=== PATIENT | female | born 1995 | race Caucasian/White ===

== ENCOUNTER 2020-12-12 12:02 | Outpatient (REF) | payer OTHER, SELFPAY | END 2020-12-12 12:03 | disposition home or self-care (01) | LOC: HO.LAB 12:02 | PROVIDERS: Visit Provider Nurse Practitioner Family | DX: Z20.822 Contact with and (suspected) exposure to COVID-19 (principal) | CPT/HCPCS: U0003; U0005 ==

== ENCOUNTER 2022-12-16 14:14 | Outpatient (REF) | payer OTHER, SELFPAY ==
[2022-12-16 16:39] LABS: MANUAL DIFF FLAG NO
[2022-12-16 16:43] LABS: Basophils Absolute Auto 0.1 X10*3/uL (0.0-0.2); Basophils Percent Auto 1.3 % (0-2); Eosinophils Absolute Auto 0.3 X10*3/uL (0.0-0.4); Hemoglobin 12.3 g/dl (12.0-16.0); Imm Gran Abs Auto 0.01 X10*3/uL (0.00-0.03); Imm Gran Pct Auto 0.2 % (0.0-0.4); Lymphocytes Absolute Auto 2.2 X10*3/uL (1.2-4.9); Mean Corpuscular HGB Conc 33.2 g/dl (31.0-35.0); Mean Corpuscular Hemoglobin 31.2 pg (27.0-33.0); Mean Corpuscular Volume 93.9 fL (80.0-98.0); Mean Platelet Volume 9.4 fL (9.4-12.3); Monocytes Absolute Auto 0.7 X10*3/uL (0.1-1.2); Monocytes Percent Auto 10.7 % (2-11); Neutrophils Absolute Auto 2.9 x10*3/uL (2.0-8.3); Neutrophils Percent Auto 46.8 % (45-73); Platelet Count 300 X10*3/uL (160-400); Red Blood Count 3.94 X10*6/uL (4.20-5.50); Red Cell Distribution Width 11.9 % (11.0-16.0); White Blood Count 6.2 X10*3/uL (4.8-10.8)
[2022-12-16 17:11] LABS: Alanine Aminotransferase 25 U/L (0-31); Albumin Level 4.4 g/dL (3.5-5.0); Alkaline Phosphatase 56 U/L (39-117); Anion Gap 11 (12-20); Aspartate Amino Transferase 23 U/L (5-31); Bilirubin Total 0.2 mg/dL (0.0-1.0); Blood Urea Nitrogen 10 mg/dL (9-16); Calcium 9.4 mg/dL (8.4-10.2); Carbon Dioxide 27 mmol/L (22-29); Chloride 107 mmol/L (96-108); Estimated Glomerular Filt Rate > 60; Glucose Random 91 mg/dL (60-115); Sodium 141 mmol/L (135-145); Total Protein 6.7 g/dL (6.5-8.0)
== END 2022-12-16 14:15 | disposition home or self-care (01) ==
LOC: HO.HMGCLDS 14:14
PROVIDERS: PCP Internal Medicine; Visit Provider Internal Medicine
DX: M79.89 Other specified soft tissue disorders (principal)
CPT/HCPCS: 36415; 80053; 85025

== ENCOUNTER 2022-12-18 11:36 | Outpatient (REF) | payer OTHER, SELFPAY ==
--- NOTE | ~2022-12-18 | US_ITS ---
EXAMINATION: US VENOUS ULTRASOUND WITH DOPPLER LOWER EXTREMITY, RIGHT CLINICAL INFORMATION: Right leg swelling COMPARISON: None available. TECHNIQUE: Ultrasound of the deep veins is performed from the hip to the calf with compression sonography and color and pulse Doppler assessment. Spectral analysis with color-flow imaging is performed. FINDINGS: There is normal venous compression and respiratory variation and augmented flow. The visualized common femoral vein, superficial femoral vein, profunda femoral vein, popliteal vein, and the trifurcation region shows no evidence of deep venous thrombosis. There is no significant popliteal fossa cyst. The contralateral left common femoral vein appears normal. If the patient's symptoms persist, followup ultrasound in 5 days 7 days might be of value to exclude proximal propagation from a non-visualized calf vein. US/US venous duplex LE RT IMPRESSION: No DVT demonstrated in the right lower extremity.
== END 2022-12-18 11:37 | disposition home or self-care (01) ==
LOC: HO.HMGCX 11:36
PROVIDERS: PCP Internal Medicine; Visit Provider Internal Medicine
DX: M79.89 Other specified soft tissue disorders (principal)
CPT/HCPCS: 93971

== ENCOUNTER 2023-03-17 13:34 | Outpatient (AMB) | payer OTHER, SELFPAY ==
[2023-03-17 13:36] VITALS: BP 110/62; PULSE 72; O2SAT 99; BMI 15.7
--- NOTE | 2023-03-17 13:36 | MHC.PC.OV ---
Vital Signs 03/17/23 13:36 Height 5 ft 7 in Weight 100 lb BMI 15.7 BP 110/62 Blood Pressure Location Lt brachial Position Sitting Pulse 72 Pulse Source Pulse Oximeter Pulse Oximetry (%) 99 Oxygen Delivery Method Room Air Intake Visit Reasons: pe Intake Note: pt is here for physical exam. pt is requested referral for OBGYN never been before. 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 She has seasonal allergies and a deviated nasal septum, has been seen by ENT and prescribed as a lasting nasal spray which has been helping. She declines getting any vaccinations, overdue for her cervical cancer screening, request referral to OBGYN she has been feeling no complaints at present time [facility] Medical History (Updated 03/18/23 @ 09:19 by Josie Lazcano MD) Allergic rhinitis Deviated nasal septum Family history of thyroid disease in mother Generalized hypopigmentation of skin Recurrent sinus infections Status post induced Surgical History No pertinent past surgical history Family History Mother Goiter Social History Housing: House Alcohol intake: current Alcohol intake frequency: holidays/special occasions only Patient Tobacco Use Status: Never used Tobacco e-Cigarette/Vaping Use: Former Use Current occupational status: employed Current occupation: [employer]. Current occupational exposures/hazards: No Cognitive needs: No Hearing needs: No Vision needs: No Female Reproductive History Menstrual Age of Menarche: 19 Duration of menses: 6-7 days Date of last menstrual period: 03/14/23 control method: none Questionnaire PHQ-9 Over the last 2 weeks, how often have you been bothered by any of the following problems? 1. Little interest or pleasure in doing things: not at all 2. Feeling down, depressed, or hopeless: not at all 3. Trouble falling or staying asleep, or sleeping too much: not at all 4. Feeling tired or having little energy: not at all 5. Poor appetite or overeating: not at all 6. Feeling bad about yourself - or that you are a failure or have let yourself or your family down: not at all 7. Trouble concentrating on things, such as reading the newspaper or watching television: not at all 8. Moving or speaking so slowly that other people could have noticed. Or the opposite - being so fidgety or restless that you have been moving around a lot more than usual: not at all 9. Thoughts that you would be better off or of hurting yourself in some way: not at all Total score: 0 Depression Screening Interpretation: Negative 78165 - PHQ-9 Billing: Yes Source: Developed by Drs. Mike Su, Anca De La O, Terell Beauchamp and colleagues, with an educational cedrick from [employer]. Thrive Questionnaire Date Thrive assessed: 03/17/23 I am a: Patient What is your living situation today?: I have a steady place to live Within the past 12 months, did the food you bought not last and you didn't have the money to get more?: Never true Within the past 12 months, did you worry whether your food would run out before you got money to buy more?: Never true Do you have trouble paying for medicines?: No Do you have trouble getting transportation to medical appointments?: No Do you have trouble paying your heating and electricity bill?: No Do you have trouble taking care of your child, family member or friend?: No Do you have trouble with day-to-day activities such as bathing, preparing meals, shopping, managing finances, etc.?: No Are you currently unemployed and looking for a job?: No Are you interested in more education?: No Please select the resources that you would like help with: None Currently or been in a relationship where the following occur: no concerns reported AUDIT C Alcohol Use Questionnaire (AUDIT-C) 1. How often do you have a drink containing alcohol?: Never Total Score: 0 CAROLYN-7 AMB Questionnaire CAROLYN-7 Date CAROLYN - 7 assessed: 03/17/23 Feeling nervous, anxious, or on edge: 0 = Not at all Not being able to stop or control worryin = Not at all Worrying too much about different things: 0 = Not at all Trouble relaxin = Not at all Being so restless that it is hard to sit still: 0 = Not at all Becoming easily annoyed or irritable: 0 = Not at all Feeling afraid as if something awful might happen: 0 = Not at all Total CAROLYN-7 score (0-4 normal; 5-9 mild; 10-14 moderate; 15-21 severe): 0 Source: Developed by Drs. Mike Su, Anca De La O, Terell Beauchamp and colleagues, with an educational cedrick from [employer]. CAROLYN-7 Assessment Billing CAROLYN-7 Assessment Tool: CAROLYN-7 Assessment 05535 Review of Systems Const Denies body aches and Denies fever(s) Eyes Denies blurry vision and Denies dry eyes ENT Reports no additional complaints and Denies sore throat Card Denies chest pain, Denies lightheadedness and Denies dyspnea Resp Denies chest congestion, Denies cough, Denies dyspnea and Denies wheezing GI Denies abdominal pain, Denies change in bowel habits and Denies heartburn Denies abnormal menses, Denies hematuria, Denies urinary frequency, Denies difficulty voiding, Denies dysuria and Denies urinary urgency Musc Reports no additional complaints Skin/Breast Denies lesions and Denies rash Neuro Reports no additional complaints Psych Reports no additional complaints Endo Reports no additional complaints Aj/Lymph Reports no additional complaints Aller/Immun Reports as per HPI and Denies wheezing Physical exam (Primary Care) Vital Signs: Last Vital Signs Pulse 72 03/17/23 13:36 BP 110/62 03/17/23 13:36 Pulse Ox 99 03/17/23 13:36 Oxygen Delivery Method Room Air 03/17/23 13:36 BMI result Body Mass Index 15.7 Tobacco/Smoking Status: Tobacco use Status Tobacco use date assessed 12/16/22 03/17/23 13:40 Patient Tobacco Use Status Never used Tobacco 03/17/23 13:40 e-Cigarette/Vaping Use Former Use 03/17/23 13:40 PHQ-9: PHQ-9 Score PHQ-9: Total score 0 03/17/23 13:50 Depression Screening Interpretation: Negative Thrive Assessment: Date of Thrive Assessment Date Thrive assessed 03/17/23 03/17/23 13:40 Currently or been in a relationship where the following occur: no concerns reported Const Other: Alert oriented x3, no acute distress ambulatory with normal gait Orientation/consciousness: patient oriented x3 HENMT Ears: hearing grossly normal bilaterally, external ears normal, TM's normal bilaterally and EAC's normal General nose exam: Normal external nose present and Abnormal nasal septum present deviated Face and sinus: Yes sinuses nontender and Yes face symmetric Eyes General: appearance normal, both eyes and all related structures Neck Other: Supple with no lymphadenopathy, thyroid gland nonpalpable Chest Chest palpation & inspection: normal inspection of the chest Breast/axilla palpation: normal palpation of the breasts Resp Auscultation: clear to auscultation bilaterally and no wheezes Cardio Other: S1-S2 present regular rate and rhythm GI Other: Normal bowel sounds, soft, nontender with no mass palpated General: Yes deferred Back/Spine/Pelvis Back: No back tenderness Skin General skin exam: no rashes or lesions noted Neuro General: patient oriented x3, gait normal, tone normal, moves all extremities, Normal light touch and pain sensation, no focal motor deficits and CN's II-XI intact bilaterally Extrem General: Yes full ROM, Yes no joint enlargement, Yes no clubbing, cyanosis or edema and Yes normal gait Psych Appearance: grossly normal and well kempt Mental Status: mental status grossly normal Speech and movement: Normal speech and movement present Affect: normal affect Attitude: cooperative Thought process: Normal thought process present Thought content: Normal thought content present Results Reviewed Results Reviewed: SPEC : [id number] KEVIN: 12/16/22 STATUS: COMP REQ : [id number] RECD: 12/16/[address]: Josie Lazcano MD COMP: 12/16/22 ENTERED: 12/16/[address]: ORDERED: CMP Test Result Flag Reference Site Sodium 141 135-145 mmol/L Potassium 4.0 3.3-5.1 mmol/L CL 107 96-108 mmol/L CO2 27 22-29 mmol/L Gap 11 L 12-20 BUN 10 9-16 mg/dL Creat 0.72 0.5-1.4 mg/dL EGFR > 60 NOTE: For -[place]onegas[place] individuals, multiply the result by 1.210. Chronic Kidney Disease: Estimated GFR < 60 mL/min/1.73m2 Severe Kidney Disease: Estimated GFR < 15 mL/min/1.73m2 Glucose, Random 91 60-115 mg/dL CA 9.4 8.4-10.2 mg/dL Total Bili 0.2 0.0-1.0 mg/dL AST (GOT) 23 5-31 U/L ALT (GPT) 25 0-31 U/L Protein, Total 6.7 6.5-8.0 g/dL Alb 4.4 3.5-5.0 g/dL Alk Phos 56 39-117 U/L Laboratory Tests 12/16/22 14:19 WBC 6.2 Hgb 12.3 Hct 37.0 Plt Count 300 Assessment and Plan Assessment & Plan (1) Annual visit for general adult medical examination with abnormal findings: Code(s): Z00.01 - Encounter for general adult medical examination with abnormal findings Plan: Will check appropriate labs. Recommended dental visit every 6 months and regular eye exams, at least every 2 years. Take adequate calcium in diet and vitamin-D 3 at 2000 IU per cap once a day, in addition to weight-bearing exercises to help maintain good muscle tone and weight control. Instructed to do self-breast exam, and recommended to get yearly mammogram, starting at age 40. Immunization information provided: Yearly flu vaccine, shingles vaccine starting at age 50, at age 65 to start getting Prevnar 13 followed 1 year later by Pneumovax 23. Colonoscopy (2) Cervical cancer screening: Code(s): Z12.4 - Encounter for screening for malignant neoplasm of cervix Plan: Referral made to [facility] [place] [facility] for her routine Pap and pelvic exam (3) Family history of thyroid disease in mother: Code(s): Z83.49 - Family history of other endocrine, nutritional and metabolic diseases (4) Deviated nasal septum: Code(s): J34.2 - Deviated nasal septum Plan: Followed by ENT (5) Allergic rhinitis: Code(s): J30.9 - Allergic rhinitis, unspecified Plan: Currently on azelastine nasal spray Orders: Orders Glucose Fasting 03/17/23 J30.9 - Allergic rhinitis, unspecified, Z00.01 - Encounter for general adult medical examination with abnormal findings, Z83.49 - Family history of other endocrine, nutritional and metabolic diseases Lipid Panel 03/17/23 J30.9 - Allergic rhinitis, unspecified, Z00.01 - Encounter for general adult medical examination with abnormal findings, Z83.49 - Family history of other endocrine, nutritional and metabolic diseases TSH reflex Free T4 03/17/23 J30.9 - Allergic rhinitis, unspecified, Z00.01 - Encounter for general adult medical examination with abnormal findings, Z83.49 - Family history of other endocrine, nutritional and metabolic diseases Vitamin D 25-OH Total 03/17/23 J30.9 - Allergic rhinitis, unspecified, Z00.01 - Encounter for general adult medical examination with abnormal findings, Z83.49 - Family history of other endocrine, nutritional and metabolic diseases Hemoglobin and Hematocrit 03/17/23 J30.9 - Allergic rhinitis, unspecified, Z00.01 - Encounter for general adult medical examination with abnormal findings, Z83.49 - Family history of other endocrine, nutritional and metabolic diseases Referrals [employer] Referral Z00.01 - Encounter for general adult medical examination with abnormal findings, Z12.4 - Encounter for screening for malignant neoplasm of cervix Coding Level of Care Code Est Pt Prev Care 18-39y([id number]) Diagnoses Annual visit for general adult medical examination with abnormal findings Z00.01 Cervical cancer screening Z12.4 Family history of thyroid disease in mother Z83.49 Deviated nasal septum J34.2 Allergic rhinitis J30.9 Additional Codes CAROLYN-7 Assessment Billing - CAROLYN-7 Assessment Tool: CAROLYN-7 Assessment 10504 ([id number])
== END 2023-03-17 14:05 | disposition home or self-care (01) ==
PROVIDERS: Visit Provider Internal Medicine
DX: Z00.01 Encounter for general adult medical examination with abnormal findings (principal); Z12.4 Encounter for screening for malignant neoplasm of cervix; Z83.49 Family history of other endocrine, nutritional and metabolic diseases; J34.2 Deviated nasal septum; J30.9 Allergic rhinitis, unspecified
CPT/HCPCS: 99395

== ENCOUNTER 2024-01-08 10:51 | Outpatient (AMB) | payer OTHER, SELFPAY ==
--- NOTE | 2024-01-08 10:48 | A.OFFPC_ITS ---
Intake Visit Reasons: discuss control Iphone [phone] Intake Note: Pt is having a TH visit to discuss control medication Allergies No Known Allergies Allergy (Verified 01/08/24 11:00) Medication List - Last Reconciled 01/08/24 by Josie Lazcano MD azelastine 1 spray intranasal BID Tobacco use date assessed: 01/08/24 Dental Screening Dental Screen Date: 01/08/24 Did you have a dental visit in the last 12 months?: Yes Did you have a dental problem in the last 6 months where you did not have access to dental care?: Yes Was dental information given to patient?: Patient has dentist HPI discuss control Iphone [phone] HPI Details [age] year old lady here today requesting to be started on control pills . Her last menstrual period was 01/04/2024, just ended yesterday. Has no personal or family history of breast cancer or ovarian cancer, no history of blood clots. [facility] Medical History Status post induced Deviated nasal septum Generalized hypopigmentation of skin Family history of thyroid disease in mother Recurrent sinus infections Allergic rhinitis Surgical History No pertinent past surgical history Family History Mother Goiter Social History Housing: House Alcohol intake: current Alcohol intake frequency: holidays/special occasions only Patient Tobacco Use Status: Never used Tobacco e-Cigarette/Vaping Use: Former Use Current occupational status: employed Current occupation: [employer]. Current occupational exposures/hazards: No Cognitive needs: No Hearing needs: No Vision needs: No Female Reproductive History Menstrual Age of Menarche: 19 Duration of menses: 3-5 days Date of last menstrual period: 01/04/24 Questionnaire PHQ-9 Over the last 2 weeks, how often have you been bothered by any of the following problems? 1. Little interest or pleasure in doing things: not at all 2. Feeling down, depressed, or hopeless: not at all 3. Trouble falling or staying asleep, or sleeping too much: not at all 4. Feeling tired or having little energy: not at all 5. Poor appetite or overeating: not at all 6. Feeling bad about yourself - or that you are a failure or have let yourself or your family down: not at all 7. Trouble concentrating on things, such as reading the newspaper or watching television: not at all 8. Moving or speaking so slowly that other people could have noticed. Or the opposite - being so fidgety or restless that you have been moving around a lot more than usual: not at all 9. Thoughts that you would be better off or of hurting yourself in some way: not at all Total score: 0 Depression Screening Interpretation: Negative Depression Screening Done: Yes 87048 - PHQ-9 Billing: Yes Source: Developed by Drs. Mike Su, Anca De La O, eTrell Beauchamp and colleagues, with an educational cedrick from [employer]. Thrive Questionnaire Date Thrive assessed: 01/08/24 I am a: Patient What is your living situation today?: I have a steady place to live Within the past 12 months, did the food you bought not last and you didn't have the money to get more?: Never true Within the past 12 months, did you worry whether your food would run out before you got money to buy more?: Never true Do you have trouble paying for medicines?: No Do you have trouble getting transportation to medical appointments?: No Do you have trouble paying your heating and electricity bill?: No Do you have trouble taking care of your child, family member or friend?: No Do you have trouble with day-to-day activities such as bathing, preparing meals, shopping, managing finances, etc.?: No Are you currently unemployed and looking for a job?: No Are you interested in more education?: No THRIVE Score: 0 AUDIT C Alcohol Use Questionnaire (AUDIT-C) 1. How often do you have a drink containing alcohol?: Never Total Score: 0 CAROLYN-7 AMB Questionnaire CAROLYN-7 Date CAROLYN - 7 assessed: 01/08/24 Feeling nervous, anxious, or on edge: 0 = Not at all Not being able to stop or control worryin = Not at all Worrying too much about different things: 0 = Not at all Trouble relaxin = Not at all Being so restless that it is hard to sit still: 0 = Not at all Becoming easily annoyed or irritable: 0 = Not at all Feeling afraid as if something awful might happen: 0 = Not at all Total CAROLYN-7 score (0-4 normal; 5-9 mild; 10-14 moderate; 15-21 severe): 0 Source: Developed by Drs. Mike Su, Anca De La O, Terell Beauchamp and colleagues, with an educational cedrick from [employer]. Review of Systems Const Denies body aches and Denies fever(s) ENT Reports no additional complaints Card Denies chest pain, Denies lightheadedness and Denies dyspnea Resp Denies chest congestion, Denies cough and Denies dyspnea GI Denies abdominal pain, Denies change in bowel habits and Denies heartburn Denies abnormal menses, Denies hematuria, Denies urinary frequency, Denies difficulty voiding, Denies dysuria and Denies urinary urgency Musc Reports no additional complaints Skin/Breast Denies lesions and Denies rash Neuro Reports no additional complaints Psych Reports no additional complaints Endo Reports no additional complaints Aj/Lymph Reports no additional complaints Physical exam (Primary Care) Tobacco/Smoking Status: Tobacco use Status Tobacco use date assessed 01/08/24 01/08/24 10:50 Patient Tobacco Use Status Never used Tobacco 01/08/24 10:50 e-Cigarette/Vaping Use Former Use 01/08/24 10:50 PHQ-9: PHQ-9 Score PHQ-9: Total score 0 01/08/24 11:19 Depression Screening Interpretation: Negative Thrive Assessment: Date of Thrive Assessment Date Thrive assessed 01/08/24 01/08/24 10:50 Telehealth Telehealth Telehealth Platform: Oversi Location of provider rendering services: practice address Location of patient: address on file Patient Identification confirmed using: Name, : Yes Telehealth method: video Patient verbally consented to treatment: Yes Patient verbally consented to billing insurance company: Yes Patient informed of any privacy concerns related to visit: Yes Minutes spent on Phone/Video with Pt.: 15 Assessment and Plan Assessment & Plan (1) Encounter for initial prescription of contraceptive pills: Code(s): Z30.011 - Encounter for initial prescription of contraceptive pills Plan: Started on Apri, patient advised either starting the pills on the 1st day of her period or on the Thursday after her period. Advised to have backup contraception during the 1st month of taking the pill. Take it every day at the same time, instructed on what to do she misses a dose, discussed possible side effects of the medication which may include increased risk for blood clots overdue for her cervical cancer screening. Referred to [facility] [place] [place] [facility] for her routine Pap and pelvic exam (2) Screening for malignant neoplasm of cervix: Code(s): Z12.4 - Encounter for screening for malignant neoplasm of cervix Plan: Referred to [facility] [place] [place] [facility] for her cervical cancer screening and for control surveillance (3) Encounter for control pills maintenance: Code(s): Z30.41 - Encounter for surveillance of contraceptive pills Plan Started on Apri Orders: Referrals [employer] Referral Z12.4 - Encounter for screening for malignant neoplasm of cervix, Z30.41 - Encounter for surveillance of contraceptive pills Medications: New desogestrel-ethinyl estradiol 0.15-0.03 mg (Apri) 1 tab PO DAILY 84 tabs 0RF Z30.011 - Encounter for initial prescription of contraceptive pills Coding Level of Care Code Tele Est Pt Level 3 (40254) Diagnoses Encounter for initial prescription of contraceptive pills Z30.011 Screening for malignant neoplasm of cervix Z12.4 Encounter for control pills maintenance Z30.41
== END 2024-01-08 13:51 | disposition home or self-care (01) ==
PROVIDERS: PCP Internal Medicine; Visit Provider Internal Medicine
DX: Z30.011 Encounter for initial prescription of contraceptive pills (principal)
CPT/HCPCS: 99213